=== PATIENT | male | born 1975 | race Caucasian/White ===

== ENCOUNTER 2019-10-12 12:03 | Emergency (ER) | payer OTHER, SELFPAY ==
[2019-10-12] VITALS (7 sets, daily range): BP systolic 149–180; BP diastolic 105–116; PULSE 50–65; RESP 16–18; TEMP 36.8–37.4; O2SAT 98–100
--- NOTE | ~2019-10-12 | CT_ITS ---
EXAMINATION: CT brain wo con DATE: 10/12/2019 12:51 INDICATION: Dizziness. TECHNIQUE: Computed tomography (CT) of the head was performed without intravenous contrast. The mA wa s adjusted according to patient size. Iterative reconstruction technique was employed. The dose-lengt h product was 681.00 mGy-cm. COMPARISON: Head CT 06/29/2011 FINDINGS: There is no intracranial hemorrhage, acute infarction, or abnormal intracranial mass lesion . The ventricles are normal in size. The orbits are normal. There is mucosal thickening in the parana joanna sinuses. There are trace mastoid effusions. IMPRESSION: 1. Normal brain. Reviewed, dictated and finalized at location A. IMPRESSION: 1. Normal brain.
--- NOTE | ~2019-10-12 | XR_ITS ---
EXAMINATION: XR chest 1V portable DATE: 10/12/2019 13:02 INDICATION: Dizziness. TECHNIQUE: A single frontal view of the chest was obtained on 2 radiographs. COMPARISON: Chest 2 views 08/26/2012 FINDINGS: The chest demonstrates clear lungs without pneumonia, pleural effusion, or pneumothorax. Th e heart size is normal. IMPRESSION: 1. No acute cardiopulmonary disease. Reviewed, dictated and finalized at location A.
--- NOTE | 2019-10-12 12:04 | ECG_ITS ---
Measurements Intervals [place] Rate: 48 P: 50 MT: 168 QRS: 46 QRSD: 103 T: 39 QT: 420 QTc: 376 Interpretive Statements SINUS BRADYCARDIA ABNORMAL ECG Electronically Signed On 10-12-2019 12:43:31 CDT by Preet Whitehead D.O.
[2019-10-12 12:22] LABS: Basophils Absolute Auto 0.1 K/mm3 (0.0-0.1); Eosinophils Absolute Auto 0.1 K/mm3 (0-0.3); Eosinophils Percent Auto 1.9 % (0-4.4); Hematocrit 44.5 % (42.0-52.0); Hemoglobin 15.1 g/dL (14.0-18.0); Immature Granulocyte Absolute 0.02 K/mm3 (0.00-0.031); Immature Granulocyte Percent A 0.3 % (0-0.5); Lymphocytes Absolute Auto 1.76 K/mm3 (0.9-3.2); Mean Corpuscular HGB Conc 33.9 g/dl (32-36); Mean Corpuscular Hemoglobin 31.7 pg (26-34); Mean Corpuscular Volume 93.5 fl (80-100); Mean Platelet Volume 9.9 fl (7.4-10.4); Monocytes Absolute Auto 0.7 K/mm3 (0.1-0.6); Monocytes Percent Auto 11.1 % (2.6-8.5); Neutrophils Absolute Auto 3.3 K/mm3 (1.3-6.7); Neutrophils Percent Auto 55.7 % (45.5-73.1); Platelet Count Result 267 k/mm3 (150-375); Red Blood Count 4.76 M/mm3 (4.6-6.20); Red Cell Distribution Width 13.2 % (11.5-14.5); White Blood Count 5.9 K/mm3 (4.5-10.0)
[2019-10-12 12:39] LABS: Anion Gap 12.7 mmol/L (7-16); Blood Urea Nitrogen 17 mg/dL (9-20); Calcium 9.2 mg/dL (8.4-10.2); Carbon Dioxide 25 mmol/L (22-30); Chloride 108 mmol/L (98-107); Estimated CRCL calculation 130 ml/min; Estimated Glomerular Filt Rate > 60; Glucose 93 mg/dL (75-110); Potassium 4.7 mmol/L (3.4-5.0); Sodium 141 mmol/L (137-145)
--- NOTE | 2019-10-12 12:39 | ED.GENADULT ---
HPI - General Adult General Chief complaint: Dizziness Stated complaint: dizzyness Time Seen by Provider: 10/12/19 12:27 Source: RN notes reviewed History of Present Illness HPI narrative: Patient presents emergency department from PCPs office for dizziness. Patient states for the past 2 weeks he has been having episodes of dizziness that is worse when he gets up and turns his head to the right. States he has a history of high blood pressure and went to his PCP today where is noted his blood pressure was increasing and sent to the ED for further evaluation. States his syncopal had been increased from 20 mg to 40 mg. He denies any fevers or chills vision changes numbness or tingling in extremities chest pain shortness of breath abdominal pain nausea vomiting or any other symptoms Related Data Home Medications Medication Instructions Recorded Confirmed fexofenadine 180 mg tablet 180 mg PO DAILY PRN 03/14/19 07/12/19 Allergies Allergy/AdvReac Type Severity Reaction Status Date / Time SEASONAL ALLERGENS AdvReac Unknown RUNNY NOSE Uncoded 10/12/19 12:10 Review of Systems Review of Systems: Narrative: Gen.: Denies fevers or chills Eyes: Denies eye pain or visual change ENT: Denies congestion Respiratory: Denies shortness of breath or cough CV: Denies chest pain or palpitations GI: Denies abdominal pain nausea, emesis or diarrhea Musculoskeletal: Denies back pain or muscle pain Neuro: See HPI Skin: Denies rash Except as documented, all other systems reviewed and negative [facility] Past Medical History Medical History Essential hypertension Migraines Seasonal allergies Seasonal depression Family History Family History (Updated 11/24/17 @ 07:57 by DOCTOR UNKNOWN) Sibling Family history of transient ischemic attacks Patient's brother is in good health Father Patient's father is in good health Social History Social History Smoking status: Never smoker Alcohol intake: current Gender identity (if verbalized by the patient): Male Exam Narrative: Exam Narrative: APPEARANCE: No acute distress, nontoxic, resting in bed HEENT: Normocephalic, atraumatic, OMM, TMs clear bilaterally EYES: PERRL, EOMI NECK: Supple, nontender, full range of motion without pain, no meningismus RESPIRATORY: No respiratory distress, clear to auscultation bilaterally with no rhonchi wheezing or rales CARDIOVASCULAR: RRR s murmur ABDOMINAL: Soft, nontender, nondistended MUSCULOSKELETAL: Moves all extremities. No clubbing, cyanosis or edema. NEURO: A and O ?3, following commands, speech normal, cranial nerves II through XII grossly intact,muscle strength 5 out of 5 bilateral upper and lower extremities SKIN:: Warm, dry. Normal Color PSYCHIATRIC: Normal affect/mood Course Course Emergency Course: Patient states dizziness is improved with Antivert and increasingly improved with Valium. Patient had a prescription for lisinopril 40 mg called in today and will start that tomorrow. He states with ambulation he is feeling better and ready for discharge states dizziness only occurs when he looks up into the left at this time Discussed with patient results of workup and diagnosis. Discussed need for follow-up with primary care, proper use of medication, and reasons to return to the emergency department. Patient understands and agrees to current treatment plan Vital Signs Vital signs: Vital Signs Temperature 98.3 F 10/12/19 12:07 Pulse Rate 59 L 10/12/19 12:07 Respiratory Rate 18 10/12/19 12:07 Blood Pressure 167/106 H 10/12/19 12:07 Pulse Oximetry 100 10/12/19 12:07 Temperature 98.3 F 10/12/19 12:07 Pulse Rate 56 L 10/12/19 16:30 Respiratory Rate 16 10/12/19 16:30 Blood Pressure 153/107 H 10/12/19 16:30 Pulse Oximetry 99 10/12/19 16:30 Medical Decision Making [facility] Narrative Medical decision making
[2019-10-12] MEDS: MECLIZINE HCL 25 MG TABLET PO (13:06)
--- NOTE | 2019-10-12 15:49 | PC.NURSE ---
Pt ambulated in hallway with RN. Steady on his feet with no dizziness. notified
== END 2019-10-12 18:28 | disposition home or self-care (01) ==
PROVIDERS: Emergency Provider Emergency Medicine; PCP Internal Medicine
DX: R42 Dizziness and giddiness (principal); I10 Essential (primary) hypertension; R00.1 Bradycardia, unspecified
CPT/HCPCS: 36415; 70450; 71045; 80048; 85025; 93005; 96374; 99284; A9270; J3360

== ENCOUNTER 2023-07-01 12:32 | Outpatient (CLI) | payer OTHER, SELFPAY ==
--- NOTE | 2023-07-01 13:01 | ECG_ITS ---
SEE SCANNED COPY FOR CONFIRMED REPORT MTDD
[2023-07-01 13:31] LABS: Anion Gap 5 mmol/L (4-12); Blood Urea Nitrogen 19 mg/dL (9-20); Calcium 9.5 mg/dL (8.4-10.2); Carbon Dioxide 29 mmol/L (22-30); Chloride 110 mmol/L (98-107); Estimated Glomerular Filt Rate > 60; Glucose 85 mg/dL (65-110); Potassium 4.4 mmol/L (3.4-5.0); Sodium 144 mmol/L (137-145)
== END 2023-07-01 12:33 | disposition home or self-care (01) ==
LOC: ANHSURGERY 12:38
PROVIDERS: Anesthesiology; PCP Family Medicine; Visit Provider Podiatrist Foot & Ankle Surgery
DX: Z01.818 Encounter for other preprocedural examination (principal); Z79.899 Other long term (current) drug therapy; I10 Essential (primary) hypertension
CPT/HCPCS: 36415; 80048; 93005

== ENCOUNTER 2023-07-09 00:57 | Day surgery (SDC) | payer OTHER, SELFPAY ==
[2023-07-01 10:56] VITALS: BMI 28.0
--- NOTE | 2023-07-01 11:03 | PC.NURSE ---
Report to the Outpatient Waiting Room, entrance under the green pavilion located off [facility], at time 6:00 on date 07/09/23. Planned Procedure Time: 7:30. Time changes happen often and if your time is changed the preop area will call you the afternoon before. - You and your visitor will be asked to self-screen and do not enter if you have any COVID symptoms. - A mask is optional within the hospital at this time. Patients may have clear liquids (water, carbonated beverages, clear teas, apple juice) until 3 hours prior to surgery (4:30) with a maximum of 20 ounces. - No food from midnight until time of surgery Take the following medications with a SIP of water the morning of surgery: NONE DO NOT STOP ANY OF YOUR OTHER PRESCRIPTION MEDICATIONS PRIOR TO SURGERY ?EXCEPT THE FOLLOWING Medications to discontinue per physician: VITAMINS Date to take last dose: 07/05/23 Please no make-up, nail syriac, hairspray, perfume, deodorant, or body powder the day of surgery. No jewelry (including any body piercings) or valuables the day of surgery, leave them at home. Please take a shower or bath the night before, or the morning of, surgery with an antibacterial soap. Wear comfortable, loose fitting clothing. - Jewelry must be removed prior to entering the operating room. Rings and piercings that are not removed may be cut off. - The hospital will not accept responsibility for valuables. - Please leave all valuables, including medications, at home the day of surgery. If you are going home after surgery, a licensed security patrol driver must drive you home. - NO public transportation without another adult if you receive anesthesia. - We recommend that an adult stay with you for 24 hours following discharge. - We also recommend that you do not drive, make important decision, drink alcoholic beverages, or take any drugs that were not prescribed by your health care provider for at least 24 hours after your discharge time. Follow any additional instructions given to you from your surgeon. If you or anyone in your household have experienced Covid symptoms in the past week, please notify your surgeon or the nurse liaison at the phone number below for possible testing. Telephone instructions given to MIGNON MATUTE and asked if any additional questions and then verbalized understanding. Patient advised to call surgeon office or pre surgery nurse liaison [phone] if any additional questions.
[2023-07-09] VITALS (9 sets, daily range): BP systolic 131–163; BP diastolic 71–106; PULSE 63–85; RESP 12–20; TEMP 36.6–36.7; O2SAT 92–99
--- NOTE | ~2023-07-09 | XR_ITS ---
XR surgery orthopedic Indication: Lapidus bunionectomy, Juarez shortening second metatarsal left TECHNIQUE: Fluoroscopy used during Lapidus bunionectomy, Juarez shortening second metatarsal left perf ormed by [Marcos Chase JR MD] on 07/09/2023. 51 seconds of fluoroscopy with 4 fluoroscopic im ages captured. FINDINGS: Correlate with procedure note. IMPRESSION: Fluoroscopy used during Lapidus bunionectomy, Juarez shortening second metatarsal left. Ple ase refer to procedural report. Reviewed, dictated and finalized at location B. IMPRESSION: Fluoroscopy used during Lapidus bunionectomy, Juarez shortening secon d metatarsal left. Please refer to procedural report.
[2023-07-09] MEDS: LACTATED RINGERS 1,000 ML 30 ML IV CONT ×2 (07:00→09:45)
--- NOTE | 2023-07-09 07:08 | P.HP_ITS ---
H&P: HPI History of Present Illness Date/Time: 07/09/23 07:08 Chief Complaint: Pain to the left forefoot. Failed conservative treatment. Review of Systems Musculoskeletal: Comments: Lateral deviation of the hallux and medial deviation of the first metatarsal left. Prominent plantar 2nd metatarsal left foot. COUNT INCLUDES THE [facility] Past Medical History Medical History (Updated 07/09/23 @ 07:14 by Marcos Chase JR, MD) Essential hypertension Migraines Seasonal allergies Seasonal depression Family History Family History (Updated 11/24/17 @ 07:57 by DOCTOR UNKNOWN) Sibling Family history of transient ischemic attacks Patient's brother is in good health Father Patient's father is in good health Social History Social History Smoking status: Never smoker Alcohol intake: never Alcohol use details: rarely Substance use: never Substance use type: does not use Living arrangements: with family Gender identity (if verbalized by the patient): Male Spiritual care concerns: No Meds Home Medications and Allergies Home Medications Medication Instructions Recorded Confirmed Type fexofenadine 180 mg tablet 180 mg PO DAILY PRN Allergy 03/14/19 07/01/23 History (Monique Allergy) Symptoms tadalafil 10 mg tablet (Cialis) 10 mg PO DAILY PRN sexual activity 02/14/20 07/01/23 Rx #9 tabs Vitamin D3 1 tab-cap PO DIRECTED 06/18/23 07/01/23 History cyanocobalamin (vitamin B-12) 1 tablet PO DIRECTED 06/18/23 07/01/23 History hydrochlorothiazide 25 mg tablet 25 mg PO DIRECTED 06/18/23 07/01/23 History losartan 50 mg tablet 50 mg PO DIRECTED 06/18/23 07/01/23 History meclizine 1 tab-cap PO DIRECTED 06/18/23 07/01/23 History spironolactone 25 mg tablet 25 mg PO DIRECTED 06/18/23 07/01/23 History magnesium glycinate 100 mg tablet 100 mg PO DAILY 07/01/23 07/01/23 History Allergies Allergy/AdvReac Type Severity Reaction Status Date / Time No Known Allergies Allergy Verified 07/01/23 10:54 Assessment and Plan Assessment and plan (1) Bunion of great toe of left foot: Code(s): M21.612 - Bunion of left foot Status: Acute Plan 1. Bunion deformity left foot- Consented for a Lapidus bunionectomy left foot with an Rohan phalangeal osteotomy. 2. Metatarsalgia second MPJ left foot- Juarez Shortening second metatarsal ostetomy left foot
--- NOTE | 2023-07-09 07:08 | WPDANESEPPF ---
Anes - Initial Pre Proc Eval Procedure: Operation Date: 07/09/23 07:30 Proposed Procedures p Lapidus Bunionectomy Left Foot - Marcos Chase JR, MD s Rohan Phalangeal Osteotomy Left Hallux, Juarez Shortening Second Metatarsal Osteotomy Left Foot - Marcos Chase JR, MD Date/Time: 07/09/23 07:08 Surgeon: Marcos Chase JR, MD Pre Op Diagnosis: Bunion Lt Foot, Metatarsalgia Lt Foot Patient Data Age: 47 Gender: M Height: 1.93 m Weight: 104.35 kg Allergies Allergy/AdvReac Type Severity Reaction Status Date / Time No Known Allergies Allergy Verified 07/09/23 07:18 Home Medications Medication Instructions Recorded Confirmed Type fexofenadine 180 mg tablet 180 mg PO DAILY PRN Allergy 03/14/19 07/09/23 History (Monique Allergy) Symptoms tadalafil 10 mg tablet (Cialis) 10 mg PO DAILY PRN sexual activity 02/14/20 07/09/23 Rx #9 tabs Vitamin D3 1 tab-cap PO DIRECTED 06/18/23 07/09/23 History cyanocobalamin (vitamin B-12) 1 tablet PO DIRECTED 06/18/23 07/09/23 History hydrochlorothiazide 25 mg tablet 25 mg PO DIRECTED 06/18/23 07/09/23 History losartan 50 mg tablet 50 mg PO DIRECTED 06/18/23 07/09/23 History meclizine 1 tab-cap PO DIRECTED 06/18/23 07/09/23 History spironolactone 25 mg tablet 25 mg PO DIRECTED 06/18/23 07/09/23 History magnesium glycinate 100 mg tablet 100 mg PO DAILY 07/01/23 07/09/23 History Patient hx anesthesia problems: none Family hx anesthesia problems: none Results Review: All pre-operative results and documents have been reviewed as part of the pre-operative evaluation. FOR[facility]LY [facility] Past Medical History Medical History Essential hypertension Migraines Seasonal allergies Seasonal depression Family History Family History Sibling Family history of transient ischemic attacks Patient's brother is in good health Father Patient's father is in good health Social History Social History Smoking status: Never smoker Alcohol intake: never Alcohol use details: rarely Substance use: never Substance use type: does not use Living arrangements: with family Gender identity (if verbalized by the patient): Male Spiritual care concerns: No Anes - Eval Final PreProcedure Day of Procedure 07/09/23 07:08 Patient weight: normal Heart: regular rate and rhythm Lungs: clear to auscultation Airway: Mallampati scale class II Neurological: alert and oriented Last oral intake: >/= 8 hours ASA classification: II Emergent: no Anesthetic plan: proceed Anesthesia type and monitoring: general LMA and standard monitoring Results Review: All pre-operative results and documents have been reviewed as part of the pre-operative evaluation. Informed Consent: The patient's anesthetic plan and its attendant risks and benefits were discussed with the patient/family/POA. Questions were solicited and answers provided to the satisfaction of the patient/family/POA.
[2023-07-09] MEDS: ceFAZolin 2 GM/D5W 50 ML 2 GM/50 ML BAG IVPB (07:30)
--- NOTE | 2023-07-09 07:47 | WPDANESPNB ---
Anes - Peripheral Nerve Block Date/Time: 07/09/23 07:47 I have discussed with the patient/family/POA the placement of a peripheral nerve block for post-operative pain management, including associated risks, benefits, complications, and side effects. Alternative methods of post-operative analgesia were detailed. Questions were solicited and answers provided to the satisfaction of the patient/family/POA. Time-Out: A pre-procedural Time-Out was completed immediately before starting the procedure and confirmed: Patient Identification, Site, Procedure, Patient Position and the Availability of Requisite Equipment. Clinical Indications: Acute post-operative pain management requested by the operative surgeon. Nerve Block Insertion Note Anes-nerve block: adductor canal Patient position: supine Skin prep: chlorhexidine Needle: 22 gauge, stimulating, insulated echogenic needle. Needle length: 80 mm Technique: ultrasound Injectate: other (Bupiv 0.5%, 6 ml. ) Observations: tolerated well Complications: none Procedure start time:: 722 Procedure end time:: 4
--- NOTE | 2023-07-09 07:48 | WPDANESPNB ---
Anes - Peripheral Nerve Block Date/Time: 07/09/23 07:48 I have discussed with the patient/family/POA the placement of a peripheral nerve block for post-operative pain management, including associated risks, benefits, complications, and side effects. Alternative methods of post-operative analgesia were detailed. Questions were solicited and answers provided to the satisfaction of the patient/family/POA. Time-Out: A pre-procedural Time-Out was completed immediately before starting the procedure and confirmed: Patient Identification, Site, Procedure, Patient Position and the Availability of Requisite Equipment. Clinical Indications: Acute post-operative pain management requested by the operative surgeon. Nerve Block Insertion Note Anes-nerve block: posterior fossa sciatic Patient position: supine Skin prep: chlorhexidine Needle: 22 gauge, stimulating, insulated echogenic needle. Needle length: 80 mm Technique: ultrasound Injectate: other (Bupiv 0.5%, 14 mls. ) Observations: tolerated well Complications: none Procedure start time:: 722 Procedure end time:: 4
--- NOTE | 2023-07-09 09:38 | W.PM.PROC2 ---
Procedure Note - Detailed Date of Procedure 07/09/23 Pre-op Diagnosis 1. Bunion Left Foot 2. Metatarsalgia Left Foot Post-op Diagnosis Same Procedure Performed 1. Lapidus Bunionectomy left foot 2. Juarez Shortening second metatarsal osteotomy left hallux Surgeon Marcos Chase JR, DPM Anesthesia General and Regional Indications Painful left forefoot Description of Procedure Under mild sedation, the patient was brought to the operating room, placed on the operating table in the supine position.? A pneumatic ankle tourniquet was placed about the patient's ankle. Following general anesthesia and a previous popliteal fossa block, the foot was then scrubbed, prepped, and draped in the usual aseptic manner.? An Esmarch bandage was then used to examine the patient's foot and pneumatic ankle tourniquet was then inflated. ? Surgery began in the following manner.? Attention was directed to the dorsal aspect of the 1st metatarsocuneiform of the foot where fluoroscopy was used to identify the joint. ? A 3 cm incision was made overlying the dorsal aspect of the 1st metatarsocuneiform joint of the foot just medial to the extensor hallucis longus tendon.? The incision was then continued deep down through the subcutaneous tissues using sharp and blunt dissection.? All bleeders were ligated and cauterized as necessary.? At this point, the extensor tendon was identified and reflected laterally.? Next, the periosteum and capsular incision was made at the full length of the skin incision exposing the medial cuneiform as well as the base of the 1st metatarsal.? Next, a sagittal bone saw was introduced from dorsal to plantar across the 1st metatarsocuneiform joint in order to free up any ankylosed portions of the joint and also to release any adhesions. Two Steinmann Pins were driven from dorsal to plantar 1cm proximal and distal to the 1st metatarsal cuneiform joint. Next, a sharp curved osteotome and curette was used to resect the cartilage and subchondral bone and a 2.0mm drill bit was used to fenestrate the joint to promote fusion. ? At this point, a small 1 cm incision was made along the medial aspect of the 1st intermetatarsal space just medial to the second metatarsal head. Next, a lateral release consisting of a lateral capsule incision as well as release of the adductor hallucis tendon with the tenotomy as well as releasing the distal aspect and lateral aspect and proximal aspect of the fibular sesamoid.? After this, a lateral release was performed.? The hallux lateral deviation was noted to be reduced as far as the track-bound hallux. Next a 3cm incision was made medial to the first metatarsal head extending proximal to the proximal phalanx.? A 0.062 K wire was driven from dorsal medial to plantar lateral across the 1st metatarsal head and a second 0.062 K wire driven from the dorsal aspect of the second metatarsal head. Next the Arthrex Lapidus clamp was used to obtain 3 plane correction of the hallux abductovalgus deformity. Fluoroscopy was used to make sure that the 1st MPJ was congruous and the sesamoid apparatus was centered under the first metatarsal and also to make certain that there was no elavatus of the first ray. ? Next, an Arthrex QuickFix 4.0 mm cannulated screw was driven from the medial base of the 1st metatarsal to the second metatarsal base under fluoroscopic guidance Excellent compression was noted across the joint. Moreover, the Arthrex dorsal Lapidus 4 while Linear plate was placed along the dorsal medial aspect of the 1st metatarsal cuneiform joint and the two 3.5mm proximal locking screws were drilled from dorsal to plantar. Next the one eccentrically drilled non locking screws was used to further compress the joint to ensure arthrodesis. Finally the most distal 3.5mm locking screw was drilled from dorsal to plantar across the plate into the metatarsal shaft. At this point the positioner was removed and fluoroscopy was used to make mcghee
[2023-07-09] MEDS: fentaNYL CITRATE INJ (*CRX) 100 MCG/2 ML VIAL 25 MCG IV PUSH ×8 (09:53→10:29)
[2023-07-09] MEDS: oxyCODONE HCL (*CRX) 5 MG TAB IR PO (11:30)
--- NOTE | 2023-07-09 11:44 | SUR.PHASEII ---
patient informed next since po pain pill given at 1130 next dose not due until 1530 or after understanding stated
--- NOTE | 2023-07-23 11:43 | WPDHPUPDATE1 ---
History and Physical Update Update Date/Time: 11:43 History and Physical has been reviewed, including an updated exam of the patient. There are NO changes in the patient's condition. Risks, benefits, and alternatives have been discussed and questions answered. Patient agrees to proceed with procedure.
== END 2023-07-09 11:55 | disposition home or self-care (01) ==
PROVIDERS: PCP Family Medicine; Visit Provider Podiatrist Foot & Ankle Surgery
PROC: (CPT 28299; principal; 2023-07-09 07:30)
PROC: (CPT 28750; 2023-07-09 07:30)
DX: M21.612 Bunion of left foot (principal); M77.42 Metatarsalgia, left foot; G89.18 Other acute postprocedural pain; I10 Essential (primary) hypertension
CPT/HCPCS: 28297; 28308; 64447; 64445; 99199; A9270; C1713; C1769; J0690; J1100; J2250; J2405; J2704; J3010; J7120

== ENCOUNTER 2024-02-24 17:10 | Outpatient (CLI) | payer OTHER, SELFPAY ==
[2024-02-24 17:51] LABS: Anion Gap 5 mmol/L (4-12); Blood Urea Nitrogen 23 mg/dL (9-20); Calcium 9.4 mg/dL (8.4-10.2); Carbon Dioxide 30 mmol/L (22-30); Chloride 105 mmol/L (98-107); Estimated Glomerular Filt Rate > 60; Glucose 92 mg/dL (65-110); Potassium 3.7 mmol/L (3.4-5.0); Sodium 140 mmol/L (137-145)
== END 2024-02-24 17:11 | disposition home or self-care (01) ==
LOC: ANHLAB 17:11
PROVIDERS: PCP Family Medicine; Visit Provider Anesthesiology
DX: Z01.818 Encounter for other preprocedural examination (principal); T50.2X5A Adverse effect of carbonic-anhydrase inhibitors, benzothiadiazides and other diuretics, initial encounter
CPT/HCPCS: 36415; 80048

== ENCOUNTER 2024-03-03 01:46 | Day surgery (SDC) | payer OTHER, SELFPAY ==
[2024-02-24 09:32] VITALS: BMI 28.2
--- NOTE | 2024-02-24 10:05 | PC.NURSE ---
Report to the Outpatient Waiting Room, entrance under the green pavilion located off [facility], at 1000 on 03-03-24. Planned Procedure Time: 1200.? Time changes happen often and if your time is changed the preop area will call you the afternoon before. - You and your visitor will be asked to self-screen and do not enter if you have any COVID symptoms. Please call surgeon if you need to reschedule. - A mask is optional within the hospital at this time. Patients may have clear liquids (water, carbonated beverages, clear teas, apple juice) until 3 hours prior to surgery with a maximum of 20 ounces. 0900 - No food from midnight until time of surgery and no smoking. This includes no chewing gum, candy or mints. - Infants may have breast milk until 4 hours before surgery, infant formula 6 hours prior to surgery. - Children will be allowed to drink immediately following surgery.? If applicable, please bring a bottle or sippy cup to assist with drinking. Juice, water, soda, and popsicles are readily available.? For infants on formula, please bring formula the day of surgery.? Pacifiers are allowed. Take only the following medications with a SIP of water on the morning of surgery: None DO NOT STOP ANY OF YOUR OTHER PRESCRIPTION MEDICATIONS PRIOR TO SURGERY EXCEPT THE FOLLOWING Medications to discontinue per physician: Vitamins and supplements Date to take last dose: 02-29-24 Please no make-up, nail finnish, hairspray, perfume, deodorant, or body powder the day of surgery.? No jewelry (including any body piercings) or valuables the day of surgery, leave them at home.? Please take a shower or bath the night before, or the morning of, surgery with an antibacterial soap.? Wear comfortable, loose fitting clothing.? Children are encouraged to wear pajamas. - Jewelry must be removed prior to entering the operating room.? Rings and piercings that are not removed may be cut off. - The hospital will not accept responsibility for valuables.? - Please leave all valuables, including medications, at home the day of surgery. If you are going home after surgery, a licensed driver education instructor must drive you home.? - NO public transportation without another adult if you receive anesthesia. - We recommend that an adult stay with you for 24 hours following discharge. - We also recommend that you do not drive, make important decision, drink alcoholic beverages, or take any drugs that were not prescribed by your health care provider for at least 24 hours after your discharge time. For Pediatric surgeries, we recommend two adults accompany the child home. Follow any additional instructions given to you from your surgeon. Telephone instructions given to Chichi Dean and asked if any additional questions and then verbalized understanding. Patient advised to call surgeon office or pre surgery nurse liaison [phone] if any additional questions.
[2024-03-03] VITALS (9 sets, daily range): BP systolic 118–154; BP diastolic 66–93; PULSE 58–70; RESP 14–18; TEMP 36.4–36.8; O2SAT 93–100
--- NOTE | ~2024-03-03 | XR_ITS ---
EXAMINATION: XR surgery orthopedic DATE: 03/03/2024 14:17 INDICATION: Right foot surgery TECHNIQUE: 4 fluoroscopic images of the right forefoot were obtained during procedure performed by Dr Cayetano Chase. Radiologist was not present for the imaging or procedure. The amount of fluoroscopy time used during this procedure was 0.9 minutes. COMPARISON: None. FINDINGS: Multiple postoperative changes right forefoot. This includes a bunionectomy with osteotomy at the med ial head of the first metatarsal with small amount of surrounding postoperative soft tissue gas. Medi al sided closing wedge osteotomy with medial sided staple fixation at the proximal metadiaphyseal reg ion of the first proximal phalanx. Plain screw fixation spanning the first metatarsophalangeal joint with cannulated lag screw spanning the base of the first and second metatarsals. Finally there is lik joanne shortening osteotomy at the neck of the second metatarsal initially fixed with a pair of retained pins which is subsequently replaced with a pair of dorsal plantar directed screws. Additional small amount of likely postoperative gas at the second metatarsophalangeal joint space. No acute fracture. IMPRESSION: 1. Fluoroscopy utilized during right forefoot surgery as detailed above. Correlate with procedure not e for further detail. Reviewed, dictated and finalized at location A. WAITER/WAITRESS IMPRESSION: 1. Fluoroscopy utilized during right forefoot surgery as detailed above. Correl ate with procedure note for further detail.
--- NOTE | 2024-03-03 07:22 | WPDHPUPDATE1 ---
History and Physical Update Update Date/Time: 03/03/24 07:22 History and Physical has been reviewed, including an updated exam of the patient. There are NO changes in the patient's condition. Risks, benefits, and alternatives have been discussed and questions answered. Patient agrees to proceed with procedure.
[2024-03-03] MEDS: LACTATED RINGERS 1,000 ML 30 ML IV CONT ×2 (11:30→15:08)
--- NOTE | 2024-03-03 12:33 | P.PNAN_ITS ---
Anes - Initial Pre Proc Eval Procedure: Operation Date: 03/03/24 12:30 Proposed Procedures p Lapidus Bunionectomy Right Foot - Marcos Chase Jr., DPM s Rohan Phalangeal Osteotomy Right Hallux, Juarez Shortening Second Metatarsal Osteotomy Right Foot - Marcos Chase Jr., DPM Date/Time: 03/03/24 12:33 Surgeon: Marcos Chase Jr., DPM Pre Op Diagnosis: Bunion Rt Foot, Metatarsalgia Rt Foot Patient Data Age: 48 Gender: M Height: 1.93 m Weight: 105.23 kg Allergies Allergy/AdvReac Type Severity Reaction Status Date / Time No Known Allergies Allergy Verified 02/24/24 09:16 Home Medications ?Medication ?Instructions ?Recorded ?Confirmed ?Type fexofenadine 180 mg tablet 10 mg PO DAILY PRN Allergy Symptoms 03/14/19 02/24/24 History (Monique Allergy) tadalafil 10 mg tablet (Cialis) 10 mg PO DAILY PRN sexual activity 02/14/20 02/24/24 Rx #9 tabs Vitamin D3 1 tab-cap PO DIRECTED 06/18/23 02/24/24 History cyanocobalamin (vitamin B-12) 1 tablet PO DIRECTED 06/18/23 02/24/24 History hydrochlorothiazide 25 mg tablet 25 mg PO DIRECTED 06/18/23 02/24/24 History losartan 50 mg tablet 50 mg PO DIRECTED 06/18/23 02/24/24 History meclizine 1 tab-cap PO DIRECTED 06/18/23 02/24/24 History spironolactone 25 mg tablet 25 mg PO DIRECTED 06/18/23 02/24/24 History magnesium glycinate 100 mg (as 100 mg PO DAILY 07/01/23 02/24/24 History glycinate) tablet omeprazole 20 mg capsule,delayed 20 mg PO BID acid reflux 02/24/24 02/24/24 History release rosuvastatin 10 mg tablet 10 mg PO DAILY 02/24/24 02/24/24 History Patient hx anesthesia problems: none Family hx anesthesia problems: none Results Review: All pre-operative results and documents have been reviewed as part of the pre- operative evaluation. [facility]LY [facility] Past Medical History Medical History Seasonal depression Seasonal allergies Migraines Essential hypertension Family History Family History Sibling Family history of transient ischemic attacks Patient's brother is in good health Father Patient's father is in good health Social History Social History Smoking status: Light tobacco smoker Tobacco type: cigars Second hand tobacco smoke exposure: No Additional smoking assessment comments: maybe has a cigar once a year Alcohol intake: current Drinks per week: 1 Alcohol use details: sometimes Substance use: never Substance use type: does not use Living arrangements: with family Gender identity (if verbalized by the patient): Male Spiritual care concerns: No Anes - Eval Final PreProcedure Day of Procedure 03/03/24 12:33 Patient weight: overweight Heart: regular rate and rhythm Lungs: clear to auscultation Airway: Mallampati scale class II Neurological: alert and oriented Last oral intake: >/= 8 hours ASA classification: III Emergent: no Anesthetic plan: proceed Anesthesia type and monitoring: general LMA and standard monitoring Results Review: All pre-operative results and documents have been reviewed as part of the pre-operative evaluation. Informed Consent: The patient's anesthetic plan and its attendant risks and benefits were discussed with the patient/family/POA. Questions were solicited and answers provided to the satisfaction of the patient/family/POA.
[2024-03-03] MEDS: ceFAZolin 2 GM/D5W 50 ML 2 GM/50 ML BAG IVPB (12:38)
[2024-03-03] MEDS: LIDOCAINE 2% LOCAL INJ 20 ML VIAL 10 ML INFILTRATE (13:01)
--- NOTE | 2024-03-03 14:20 | W.PM.PROC2 ---
Procedure Note - Detailed Date of Procedure 03/03/24 Pre-op Diagnosis 1. Bunion Right Foot 2. Metatarsalgia Right Foot Post-op Diagnosis Same Procedure Performed 1. Lapidus Bunionectomy right foot 2. Rohan Phalangeal osteotomy right hallux 3. Juarez shortening second metatarsal osteotomy right foot Surgeon Marcos Chase Jr., DPM Anesthesia General and Local Indications Painful right forefoot Description of Procedure Under mild sedation, the patient was brought to the operating room, placed on the operating table in the supine position.? A pneumatic ankle tourniquet was placed about the patient's ankle. Following general anesthesia I performed a proximal common peroneal nerve block distal and posterior to the neck of the fibula, moreover I also performed a saphenous nerve block total use was 20cc of a one to one mix of 2% Lidocaine plain and 0.5% Marcaine plain.? The foot was then scrubbed, prepped, and draped in the usual aseptic manner. An Esmarch bandage was then used to examine the patient's foot and pneumatic ankle tourniquet was then inflated. ? Surgery began in the following manner.? Attention was directed to the dorsal aspect of the 1st metatarsocuneiform of the foot where fluoroscopy was used to identify the joint. ? A 3 cm incision was made overlying the dorsal aspect of the 1st metatarsocuneiform joint of the foot just medial to the extensor hallucis longus tendon.? The incision was then continued deep down through the subcutaneous tissues using sharp and blunt dissection.? All bleeders were ligated and cauterized as necessary.? At this point, the extensor tendon was identified and reflected laterally.? Next, the periosteum and capsular incision was made at the full length of the skin incision exposing the medial cuneiform as well as the base of the 1st metatarsal.? Next, a sagittal bone saw was introduced from dorsal to plantar across the 1st metatarsocuneiform joint in order to free up any ankylosed portions of the joint and also to release any adhesions. Two Steinmann Pins were driven from dorsal to plantar 1cm proximal and distal to the 1st metatarsal cuneiform joint. Next, a sharp curved osteotome and curette was used to resect the cartilage and subchondral bone and a 2.0mm drill bit was used to fenestrate the joint to promote fusion. ? At this point, a small 1 cm incision was made along the medial aspect of the 1st intermetatarsal space just medial to the second metatarsal head. Next, a lateral release consisting of a lateral capsule incision as well as release of the adductor hallucis tendon with the tenotomy as well as releasing the distal aspect and lateral aspect and proximal aspect of the fibular sesamoid.? After this, a lateral release was performed.? The hallux lateral deviation was noted to be reduced as far as the track-bound hallux. Next a 3cm incision was made medial to the first metatarsal head extending proximal to the proximal phalanx.? A 0.062 K wire was driven from dorsal medial to plantar lateral across the 1st metatarsal head and a second 0.062 K wire driven from the dorsal aspect of the second metatarsal head. Next the Arthrex Lapidus clamp was used to obtain 3 plane correction of the hallux abductovalgus deformity. Fluoroscopy was used to make sure that the 1st MPJ was congruous and the sesamoid apparatus was centered under the first metatarsal and also to make certain that there was no elevatus of the first ray. ? Next, an Arthrex QuickFix 4.0 mm cannulated screw was driven from the medial base of the 1st metatarsal to the second metatarsal base under fluoroscopic guidance excellent reduction of the first intermetatarsal angle was noted. There was some degree of medial joint gapping so 2.5ccs of DBM Arthrex was used to pack the gap. Moreover, the Arthrex dorsal Lapidus 5 hole- plate was placed along the dorsal medial aspect of the 1st metatarsal cuneiform joint and the two 3.5mm proximal locking screws were drilled from dorsal to plantar. Next the one eccentrically drilled non locking screws was used to further compress the joint to ensure arthrodesis. Finally the most distal 3.5mm locking screw was drilled from dorsal to plantar across the plate into the metatarsal shaft. At this point the positioner was removed and fluoroscopy was used to make sure that the deformity correction was maintained. The patient still had slight hallux abductus so I made a closing medial base wedge resection from the base of the proximal phalanx and compressed the osteotomy with an Arthrex 9mm wide by 10mm long Dynanite compression staple. After the Rohan osteotomy the hallux was noted to be in a rectus position. I performed a semi-ellipse of the medial capsule of the first metatarsal phalangeal joint to perform a capsulorraphy it was reapproximated with 3.0 PDS and 2.0 Vicryl in horizontal mattress suture fashion technique. Attention was directed to the base of the second digit of the right foot where a 3 cm incision was made from the head of the 2nd metatarsal shaft. The dissection was continued to the dorsal aspect of the 2nd metatarsal head of the right foot where a 2 cm incision was made just medial to the extensor tendon to the 2nd digit. The incision was continued deep down through the subcutaneous tissues using sharp and blunt dissection. All bleeders were cauterized as necessary. A full-length periosteal incision was made overlying the 2nd metatarsal head distally. Next, a sagittal bone saw was used to make an osteotomy starting along the dorsal aspect of the articular surface to the head of the 2nd metatarsal in a parallel fashion to the shaft of the 2nd metatarsal. After this osteotomy was completed, the head of the 2nd metatarsal was noted to float into a more corrected proximal position. Two Arthrex 2.4mm Quickfix screws were driven from dorsal to plantar across the osteotomy site in a cannulated fashion excellent compression noted. Next, the subcutaneous structures were reapproximated and coapted utilizing 4-0 Vicryl.? Next, the skin was reapproximated and coapted utilizing 4-0 Monocryl in running subcuticular suture fashion technique. ? Upon completion of the procedure, the incisions were dressed with Steri-Strips, Adaptic, 4 x 4's, Kerlix, and Coban.? The pneumatic ankle tourniquet was then deflated and a prompt hyperemic response noted to all digits of the foot. A posterior splint was then applied with the foot held 90 degrees to the leg. ? The patient did very well with the procedure and the anesthesia.? The patient was transferred to the recovery room with vital signs stable and vascular status intact to all toes of the foot.? Following a period of postoperative monitoring, the patient will be discharged home on the following written and oral postoperative instructions: 1. Keep the dressing clean, dry, and intact.? Use a cast protector bag with showers. 2. The patient to be strictly nonweightbearing with a knee scooter. 3. The patient should ice and elevate the? foot when at rest. 4. The patient to contact Dr. Chase for all postop care and if any problems arise. 5. Prescriptions were written for Percocet 5/325 dispensed 40 to be taken 1 p.o. q.4 to 6 hours as needed for severe pain. Implants Arthrex 5 hole linear plate with three 3.mm Kreulock locking screws and one 3.0mm non locking screw One Arthrex 4.0mm Quicfix Cannulated screw One Arthrex 9mm wide by 10mm long Dynanite staple Two Arthrex 2.4mm Quickfix screws Estimated Blood Loss 5 Drains No Packing No Pathology None sent Complications No immediate complications Condition Stable Disposition Same day
[2024-03-03] MEDS: MEPERIDINE HCL INJ (*CRX) 50 MG/ML AMPUL 25 MG IV PUSH (14:41)
[2024-03-03] MEDS: fentaNYL CITRATE INJ (*CRX) 100 MCG/2 ML VIAL 25 MCG IV PUSH ×4 (14:56→15:10)
[2024-03-03] MEDS: oxyCODONE HCL (*CRX) 5 MG TAB IR PO (15:54)
== END 2024-03-03 16:40 | disposition home or self-care (01) ==
PROVIDERS: PCP Family Medicine; Visit Provider Podiatrist Foot & Ankle Surgery
PROC: (CPT 28299; principal; 2024-03-03 12:30)
PROC: (CPT 28750; 2024-03-03 12:30)
DX: M21.611 Bunion of right foot (principal); M77.41 Metatarsalgia, right foot
CPT/HCPCS: 28297; 28308; 99199; A9270; C1713; C1769; J0690; J2003; J2175; J2250; J2270; J2704; J3010; J7120